=== PATIENT | female | born 1990 | race Caucasian/White ===

== ENCOUNTER → 2016-03-02 | Outpatient (CLI) | payer OTHER ==
[2016-03-02 09:51] LABS: CH 29.4; CHCM 33.2; HCT 30.5 % (34.0-46.0); HDW 2.89; MCH 28.9 pg (25.0-35.0); MCHC 32.6 g/dL (31.0-37.0); MCV 88.7 fL (80.0-100.0); Mean Platelet Volume 8.5; RBC 3.44 m/uL (3.80-5.40); RDW 13.7 % (11.5-15.5)
== END | disposition home or self-care (01) ==
LOC: LABWHC1 08:41
PROVIDERS: ATTEND Obstetrics & Gynecology
DX: Z34.82 Encounter for supervision of other normal pregnancy, second trimester (principal); Z3A.00 Weeks of gestation of pregnancy not specified
CPT/HCPCS: 36415; 82950; 85027

== ENCOUNTER → 2016-03-07 | Outpatient (CLI) | payer OTHER ==
[2016-03-07 12:00] LABS: Glucose 3 Hour, Gest 131 mg/dL
== END | disposition home or self-care (01) ==
LOC: LABWHC1 07:58
PROVIDERS: ATTEND Obstetrics & Gynecology
DX: O99.810 Abnormal glucose complicating pregnancy (principal); Z3A.00 Weeks of gestation of pregnancy not specified
CPT/HCPCS: 36415; 82951; 82952

== ENCOUNTER 2016-06-09 02:55 | Inpatient (IN) | payer OTHER ==
[2016-06-09 03:21] LABS: Glucose,Whole Blood 88 mg/dL (75-99)
[2016-06-09 04:10] VITALS: BMI 41.4
[2016-06-09] MEDS ORDERED: LIDOCAINE 1% (PF) 10 MG/ML (30 ML SDV) SQ PRN (04:17)
[2016-06-09] MEDS ORDERED: OXYTOCIN 10 UNIT/ML 1 ML VIAL IM PRN (04:17)
[2016-06-09] MEDS ORDERED: TERBUTALINE 1 MG/ML VIAL SQ PRN (04:17)
[2016-06-09] MEDS ORDERED: CARBOPROST TROMETHAMINE 250 MCG/ML 1 ML AMP IM PRN (04:17)
[2016-06-09] MEDS ORDERED: METHYLERGONOVINE 0.2 MG/ML 1 ML AMP IM PRN (04:17)
[2016-06-09] MEDS ORDERED: OXYTOCIN 30 UNITS/500 ML NS 30 UNIT in SALINE 1 500ML.BAG IV SCH ×2 (04:30→15:15)
[2016-06-09 04:36] LABS: Basophils % (A) 1 %; CH 28.3; CHCM 33.1; Eosinophils % (A) 0 %; HCT 33.8 % (34.0-46.0); HDW 2.75; HGB 11.1 gm/dL (11.4-16.0); Luc # (Auto) 0.29; Luc % (Auto) 4; Lymphocytes # (A) 2.1 k/uL (1.0-4.8); Lymphocytes % (A) 28 %; MCH 28.3 pg (25.0-35.0); MCHC 32.9 g/dL (31.0-37.0); MCV 85.9 fL (80.0-100.0); Mean Platelet Volume 7.3; Monocytes # (A) 0.4 k/uL (0-1.0); Monocytes % (A) 5 %; Neutrophils # (A) 4.6 k/uL (1.3-7.7); Neutrophils % (A) 62 %; RBC 3.94 m/uL (3.80-5.40); RDW 15.6 % (11.5-15.5); WBC 7.5 k/uL (3.8-10.6); WBC (Perox) 8.17
[2016-06-09] MEDS: LACTATED RINGERS 1,000 ML IV SCH ×3 (05:27→13:25)
--- NOTE | 2016-06-09 05:54 | P.HPOB ---
History of Present Illness H&P Date: 06/09/16 Chief Complaint: Leaking of fluid This patient is a pleasant 26-year-old 2 para 0 female estimated date of confinement 06/16/2016 estimated gestational age 39-0/7 weeks who presented to labor and delivery last evening with complaints of a gush of fluid at approximately 12:30 evening. Patient's is been complicated by gestational diabetes since been managed by maternal medicine. Patient also was noted to have a two-vessel cord but has had good growth. Patient was initially scheduled for Cervidil next week hours found to be grossly ruptured and 2-3 cm dilated. Review of Systems Constitutional: Denies chills, Denies fever Ears, nose, mouth and throat: Denies headache, Denies sore throat Cardiovascular: Denies chest pain, Denies shortness of breath Respiratory: Denies cough Gastrointestinal: Reports heartburn Genitourinary: Reports Menstruation: Reports amenorrhea Musculoskeletal: Denies myalgias Integumentary: Denies pruritus, Denies rash Neurological: Denies numbness, Denies weakness Psychiatric: Denies anxiety, Denies depression Past Medical History Past Medical History: Diabetes Mellitus Additional Past Medical History / Comment(s): Patient has had gestational diabetes. History of Any Multi-Drug Resistant Organisms: None Reported Additional Past Surgical History / Comment(s): oral surgery,,tooth removal, elective . Past Anesthesia/Blood Transfusion Reactions: No Reported Reaction Past Psychological History: No Psychological Hx Reported Smoking Status: Former smoker Past Alcohol Use History: None Reported Past Drug Use History: None Reported Medications and Allergies Home Medications Medication Instructions Recorded Confirmed Type Pnv with Ca,No.72/Iron/FA 1 tab PO DAILY 06/09/16 06/09/16 History [ Plus Tablet] glyBURIDE [Diabeta] 5 mg PO DAILY 06/09/16 06/09/16 History glyBURIDE [Diabeta] 7.5 mg PO DAILY 06/09/16 06/09/16 History Allergies Allergy/AdvReac Type Severity Reaction Status Date / Time No Known Allergies Allergy Verified 06/09/16 03:05 Exam - Vital Signs Vital signs: Vital Signs Temp Pulse Resp BP Pulse Ox 06/09/16 03:11 97.1 F L 77 16 136/74 97 Intake and Output 06/08/16 06/08/16 06/09/16 14:59 22:59 06:59 Other: Weight 114.759 kg Patient Weight 06/09/16 06:59 Weight 114.759 kg - OBG Physical Exam Abdomen: bowel sounds normal, no diffuse tenderness, no bruit present, no guarding noted, no hepatomegaly, no splenomegaly, no mass Vulva: both: normal Vagina: normal moisture, no discharge Cervix: Cervix is 2-3 cm dilated vertex presentation with gross rupture membranes. Uterus: enlarged (Fundal height at her last visit was 40 cm.) Results blood work shows she is A positive, rubella immune, RPR nonreactive, HIV nonreactive, hepatitis B negative, Glucola was abnormal as well as her 3 hour gtt. Patient's ultrasound showed a 2 vessel umbilical cord but otherwise normal anatomy. Patient's had a normal cardiac echo, and a negative group B strep. Most recent ultrasound done by maternal medicine approximately 3 days ago showed the baby to be 8 pounds. Result Diagrams: 06/09/16 04:20 Abnormal Lab Results - Last 24 Hours (Table) 06/09/16 Range/Units 04:20 Hgb 11.1 L (11.4-16.0) gm/dL Hct 33.8 L (34.0-46.0) % RDW 15.6 H (11.5-15.5) % Assessment and Plan (1) Spontaneous rupture of amniotic membranes Narrative/Plan: This is a pleasant 26-year-old 2 para 0 female 39-0/7 weeks gestation with spontaneous rupture membranes. Patient has known 2 vessel umbilical cord and gestational diabetes. Patient is not having any significant contractions and therefore is started on Pitocin at this time for augmentation of labor. Plan is vaginal delivery. Status: Acute (2) Gestational diabetes mellitus (GDM) affecting Status: Acute (3) Single umbilical artery Status: Acute
[2016-06-09] MEDS ORDERED: BUPIVACAINE (PF) 0.25% 30 ML VIAL ONE (08:24)
[2016-06-09] MEDS ORDERED: fentaNYL (PF) 50 MCG/ML 5 ML AMP ONE (08:24)
[2016-06-09] MEDS ORDERED: SODIUM CHLORIDE 0.9% 100 ML BAG ONE (08:24)
[2016-06-09 08:49] LABS: Glucose,Whole Blood 102 mg/dL (75-99)
[2016-06-09 09:52] LABS: Hemoglobin A1C 5.4 % (4.2-6.1)
[2016-06-09] MEDS ORDERED: BUPIVACAINE (PF) 0.25% 25 ML, fentaNYL (PF) 200 MCG in SODIUM CHLORIDE 0.9% 71 ML EPIDURAL ONE (10:20)
[2016-06-09 10:23] LABS: Glucose,Whole Blood 104 mg/dL (75-99)
[2016-06-09 12:16] LABS: Glucose,Whole Blood 91 mg/dL (75-99)
[2016-06-09 14:19] LABS: Glucose,Whole Blood 89 mg/dL (75-99)
[2016-06-09] MEDS ORDERED: HYDROCORTISONE 2.5% RECTAL CREAM 30 GM TUBE RECTAL PRN (15:10)
[2016-06-09] MEDS ORDERED: ZOLPIDEM 5 MG TAB PO PRN (15:10)
[2016-06-09] MEDS ORDERED: Acetaminophen-Codeine 300-30mg TAB PO PRN ×2 (15:10)
[2016-06-09] MEDS ORDERED: diphenhydrAMINE 25 MG CAP PO PRN (15:10)
[2016-06-09] MEDS ORDERED: LANOLIN CREAM 5 GM TUBE TOPICAL PRN (15:10)
[2016-06-09] MEDS ORDERED: BENZOCAINE/MENTHOL SPRAY 1 GM/SPRAY AEROSOL TOPICAL PRN (15:10)
[2016-06-09] MEDS ORDERED: WITCH HAZEL 1 EACH MED..PAD TOPICAL PRN (15:10)
[2016-06-09] MEDS ORDERED: SIMETHICONE 80 MG CHEWABLE PO PRN (15:10)
[2016-06-09] MEDS ORDERED: diphenhydrAMINE 50 MG/ML 1 ML VIAL IVP PRN (15:10)
[2016-06-09] MEDS ORDERED: ACETAMINOPHEN TAB 325 MG TAB PO PRN (15:10)
[2016-06-09] MEDS: IBUPROFEN 600 MG TAB PO PRN ×2 (15:29→22:11)
--- NOTE | 2016-06-09 17:06 | P.PROBDLV ---
Vaginal Delivery Note - . Vaginal Delivery Note: Normal vaginal delivery viable male Apgars 9 and 9 delivery time is 1427 hrs. Please see dictated H&P for intimate details of this patient's admission. Brief summary this pleasant 26-year-old 2 para 0 female 39-0/7 weeks gestation who is admitted to labor and delivery for complaints of leaking of fluid at 12:30 last evening. Patient on admission is 2 cm dilated. She has Pitocin augmentation of labor. She does receive an epidural for pain control. Patient's labor progresses normally she gets to complete. Patient pushes the head to the perineum and the posterior perineum was infiltrated 1% lidocaine. A midline episiotomy is made. We then have controlled delivery of the 's head over the perineum. Mouth and nares are bulb suctioned. There is a double nuchal cord which is loose and reduced. We then have delivery the anterior shoulder with gentle downward traction and posterior shoulder and rest this 's body. This is a vigorous viable male Apgars are 9 and 9 delivery time is 1427 hrs. After delivery of the the umbilical cords doubly clamped and cut appears to be 2 vessels. The is late on the mother's abdomen. Of note we did do delayed cord clamping per patient's request the placenta is spontaneously delivered intact. Inspection of the perineum shows a second-degree midline laceration is repaired with 3-0 Vicryl in the usual fashion. Excellent reapproximation is noted. All counts are correct 3. Estimated blood loss is 150 mL. There are no complications.
[2016-06-09] MEDS: SENNOSIDES-DOCUSATE SODIUM 1 EACH TAB PO SCH (22:03)
[2016-06-10 05:47] LABS: Basophils % (A) 0 %; CH 28.6; CHCM 32.7; Eosinophils % (A) 0 %; HCT 31.7 % (34.0-46.0); HDW 2.62; HGB 10.1 gm/dL (11.4-16.0); Luc # (Auto) 0.37; Luc % (Auto) 4; Lymphocytes # (A) 2.6 k/uL (1.0-4.8); Lymphocytes % (A) 27 %; MCHC 31.8 g/dL (31.0-37.0); MCV 87.8 fL (80.0-100.0); Mean Platelet Volume 7.1; Monocytes # (A) 0.5 k/uL (0-1.0); Monocytes % (A) 5 %; Neutrophils # (A) 6.3 k/uL (1.3-7.7); Neutrophils % (A) 64 %; RBC 3.61 m/uL (3.80-5.40); RDW 15.8 % (11.5-15.5); WBC 9.8 k/uL (3.8-10.6); WBC (Perox) 10.53
[2016-06-10] MEDS: IBUPROFEN 600 MG TAB PO PRN ×2 (05:53→11:38)
[2016-06-10] MEDS: LACTATED RINGERS 1,000 ML IV SCH (05:54)
--- NOTE | 2016-06-10 06:36 | P.PNOBGVD ---
Subjective - Subjective Patient reports: Reports appetite normal, Reports voiding normally, Reports pain well controlled, Reports ambulating normally : doing well Objective - Latest Vital Signs Latest vital signs: Vital Signs Temp Pulse Resp BP Pulse Ox 06/10/16 04:00 98.1 F 80 17 135/82 98 06/10/16 00:00 98.2 F 99 17 130/74 99 06/09/16 20:00 97.6 F 92 17 131/71 97 06/09/16 16:52 81 16 143/68 06/09/16 16:20 98.8 F 81 16 143/68 06/09/16 15:52 78 16 153/69 06/09/16 15:25 76 16 139/72 06/09/16 15:10 90 16 130/64 06/09/16 14:55 85 16 134/64 06/09/16 14:40 97.0 F L 87 16 143/63 Intake and Output 06/09/16 06/09/16 06/10/16 14:59 22:59 06:59 Output Total 300 200 Balance -300 -200 Output: Urine 300 Estimated Blood Loss 200 Other: # Voids 1 1 1 - Exam Lungs: bilateral: normal Chest: Normal S1, Normal S2 Extremities: Present: normal Abdomen: Present: normal appearance, soft Uterus: Present: normal, firm - Labs Labs: Abnormal Lab Results - Last 24 Hours (Table) 06/09/16 06/09/16 06/10/16 Range/Units 08:26 10:11 05:34 RBC 3.61 L (3.80-5.40) m/uL Hgb 10.1 L (11.4-16.0) gm/dL Hct 31.7 L (34.0-46.0) % RDW 15.8 H (11.5-15.5) % POC Glucose (mg/dL) 102 H 104 H (75-99) mg/dL Assessment and Plan (1) Spontaneous rupture of amniotic membranes Narrative/Plan: Post day #1. Patient is resting without complaints and wishes to go home. Vital signs are stable she is afebrile. Uterus is firm nontender she's having normal lochia. My impression is a normal course. Plan is to continue routine care discharge home later today is also baby can go home as well. Current Visit: Yes Status: Acute Code(s): [id number] - SNOMED Code(s): 581001300 (2) Gestational diabetes mellitus (GDM) affecting Current Visit: Yes Status: Acute Code(s): O24.419 - GESTATIONAL DIABETES MELLITUS IN , UNSP CONTROL SNOMED Code(s): 08654899366335 (3) Single umbilical artery Current Visit: Yes Status: Acute Code(s): Q27.0 - CONGENITAL ABSENCE AND HYPOPLASIA OF UMBILICAL ARTERY SNOMED Code(s): 112130669
--- NOTE | 2016-06-10 06:37 | P.DS ---
Providers Date of admission: 06/09/16 03:36 Expected date of discharge: 06/10/16 Attending physician: Edward Garcia Primary care physician: Stated None - Discharge Diagnosis(es) (1) Spontaneous rupture of amniotic membranes Current Visit: Yes Status: Acute (2) Gestational diabetes mellitus (GDM) affecting Current Visit: Yes Status: Acute (3) Single umbilical artery Current Visit: Yes Status: Acute Hospital Course: Please see dictated H&P for intimate details of this patient's admission. Brief summary this is a pleasant 26-year-old 2 para 0 female 39 weeks gestation admitted to labor and delivery spontaneous rupture membranes. Patient 's subsequent goes on to have a vaginal delivery viable male infant. Please see dictated delivery note. On day 1 patient is wishing to go home. She's felt to be stable for discharge home follow up with me in 6 weeks. Procedures: Normal spontaneous vaginal delivery. Patient Condition at Discharge: Good Plan - Discharge Summary New Discharge Prescriptions: Acetaminophen-Codeine 300-30mg [Tylenol w/codeine #3] 1 - 2 each PO Q4HR PRN # 30 tab PRN Reason: Mild Pain exceeding Tylenol Ibuprofen [Motrin] 600 mg PO Q6HR PRN #40 tab PRN Reason: Mild Pain Or Fever >= 100.5 Discharge Medication List Acetaminophen-Codeine 300-30mg [Tylenol w/codeine #3] 1 - 2 each PO Q4HR PRN # 30 tab 06/09/16 [Rx] Ibuprofen [Motrin] 600 mg PO Q6HR PRN #40 tab 06/09/16 [Rx] Pnv with Ca,No.72/Iron/FA [ Plus Tablet] 1 tab PO DAILY 06/09/16 [ History] glyBURIDE [Diabeta] 5 mg PO DAILY 06/09/16 [History] glyBURIDE [Diabeta] 7.5 mg PO DAILY 06/09/16 [History] Follow up Appointment(s)/Referral(s): Edward Garcia MD [STAFF PHYSICIAN] - 07/24/16 8:45 am Patient Instructions/Handouts: Vaginal Delivery (DC) Activity/Diet/Wound Care/Special Instructions: No intercourse or anything per vagina for 6 weeks. Please call if any fever, chills, excessive vaginal bleeding, and/or abdominal pain. Discharge Disposition: HOME SELF-CARE
[2016-06-10] MEDS: SENNOSIDES-DOCUSATE SODIUM 1 EACH TAB PO SCH (08:45)
[2016-06-10 09:04] VITALS: BP 134/84; PULSE 83; RESP 16; TEMP 98.2
== END 2016-06-10 15:10 | disposition home or self-care (01) | DRG 775 ==
LOC: FBPOP 02:55 → 4FBP 03:36
PROVIDERS: ADMIT Obstetrics & Gynecology; ATTEND Obstetrics & Gynecology
PROC: 10E0XZZ Delivery of Products of Conception, External Approach (ICD-10-PCS; principal; 2016-06-09)
PROC: 0KQM0ZZ Repair Perineum Muscle, Open Approach (ICD-10-PCS; 2016-06-09)
PROC: 00HU33Z Insertion of Infusion Device into Spinal Canal, Percutaneous Approach (ICD-10-PCS; 2016-06-09)
DX: O24.429 Gestational diabetes mellitus in childbirth, unspecified control (principal); O69.81X0 Labor and delivery complicated by cord around neck, without compression, not applicable or unspecified; O69.89X0 Labor and delivery complicated by other cord complications, not applicable or unspecified; O70.1 Second degree perineal laceration during delivery; Z37.0 Single live birth; Z3A.39 39 weeks gestation of pregnancy; Z87.891 Personal history of nicotine dependence; Z79.84 Long term (current) use of oral hypoglycemic drugs
CPT/HCPCS: 59025; 83036; 84112; 85025; 88307; 99213

== ENCOUNTER → 2017-11-05 | Outpatient (CLI) | payer BC ==
[2017-11-05 10:29] LABS: HCT 38.7 % (34.0-46.0); HGB 12.9 gm/dL (11.4-16.0); MCH 29.2 pg (25.0-35.0); MCHC 33.4 g/dL (31.0-37.0); MCV 87.4 fL (80.0-100.0); Platelet Count 270 k/uL (150-450); RBC 4.43 m/uL (3.80-5.40); RDW 13.1 % (11.5-15.5); WBC 6.8 k/uL (3.8-10.6)
[2017-11-05 18:07] LABS: HIV 1 AB Non-Reactive (Non-Reactive); HIV AB P24 Non-Reactive (Non-Reactive); HIV P24 AG Non-Reactive (Non-Reactive)
== END ==
LOC: LABWHC1 08:54
PROVIDERS: ATTEND Obstetrics & Gynecology
DX: O26.811 Pregnancy related exhaustion and fatigue, first trimester (principal); Z3A.00 Weeks of gestation of pregnancy not specified
CPT/HCPCS: 36415; 82565; 82950; 85027; 86762; 86780; 86850; 86900; 86901; 87340; 87390

== ENCOUNTER → 2018-02-28 | Outpatient (CLI) | payer BC ==
[2018-02-28 10:37] LABS: HCT 31.4 % (34.0-46.0); HGB 10.7 gm/dL (11.4-16.0); MCH 29.9 pg (25.0-35.0); MCHC 34.2 g/dL (31.0-37.0); MCV 87.5 fL (80.0-100.0); Mean Platelet Volume 7.3; Platelet Count 239 k/uL (150-450); RBC 3.59 m/uL (3.80-5.40); RDW 14.5 % (11.5-15.5); WBC 7.3 k/uL (3.8-10.6)
== END | disposition home or self-care (01) ==
LOC: LABWHC1 08:59
PROVIDERS: ATTEND Obstetrics & Gynecology
DX: Z34.82 Encounter for supervision of other normal pregnancy, second trimester (principal); Z3A.00 Weeks of gestation of pregnancy not specified
CPT/HCPCS: 36415; 82950; 85027

== ENCOUNTER 2018-05-31 05:34 | Inpatient (IN) | payer BC ==
--- NOTE | 2018-05-30 16:51 | P.HPOB ---
History of Present Illness H&P Date: 05/30/18 Chief Complaint: Gestational diabetes, induction of labor. This patient is a pleasant 28-year-old 3 para 1 female estimated date of confinement 06/07/2018 estimated gestational age 39-0/7 weeks gestation admitted to labor and delivery for induction of labor secondary to insulin-dependent gestational diabetes at term with a favorable cervix. Patient has been followed by maternal- medicine for her gestational diabetes and was initially given metformin but then was changed over to insulin for better glucose regulation. care has otherwise been uncomplicated. She now presents for delivery. Review of Systems Genitourinary: Reports Menstruation: Reports amenorrhea Past Medical History Past Medical History: Asthma, Diabetes Mellitus Additional Past Medical History / Comment(s): Patient has had gestational diabetes. ADHD and asthma History of Any Multi-Drug Resistant Organisms: None Reported Past Surgical History: No Surgical Hx Reported Additional Past Surgical History / Comment(s): oral surgery,,tooth removal, elective . Past Anesthesia/Blood Transfusion Reactions: No Reported Reaction Past Psychological History: No Psychological Hx Reported Smoking Status: Former smoker Past Alcohol Use History: None Reported Past Drug Use History: None Reported Medications and Allergies Home Medications Medication Instructions Recorded Confirmed Type Pnv,Calcium 72/Iron/Folic Acid 1 tab PO DAILY 06/09/16 06/09/16 History [ Plus Tablet] Allergies Allergy/AdvReac Type Severity Reaction Status Date / Time No Known Allergies Allergy Verified 06/09/16 03:05 Exam - OBG Physical Exam Abdomen: bowel sounds normal, no diffuse tenderness, no bruit present, no guarding noted, no hepatomegaly, no splenomegaly, no mass Vulva: both: normal Vagina: normal moisture, no discharge Cervix: Cervix the office is 2-3 cm and soft. Cervix: no lesion, no discharge Uterus: normal size (Fundal height was 40 cm), normal contour Results blood work shows she is A positive, rubella immune, RPR nonreactive, hepatitis B negative, HIV is nonreactive, group B strep was negative, ultrasounds have shown normal growth, Glucola was 175. Assessment and Plan Assessment: This is a pleasant 28-year-old 3 para 1 female 39-0/7 weeks gestation who is admitted to labor and delivery for induction of labor secondary to insulin-dependent gestational diabetes. Plan is induction of labor and anticipate vaginal delivery. (1) Gestational diabetes mellitus (GDM) affecting Status: Acute Code(s): O24.419 - GESTATIONAL DIABETES MELLITUS IN , UNSP CONTROL SNOMED Code(s): 92475683295546
[2018-05-31] MEDS ORDERED: METHYLERGONOVINE 0.2 MG/ML 1 ML AMP IM PRN (05:48)
[2018-05-31] MEDS ORDERED: LACTATED RINGERS 1,000 ML IV SCH (05:48)
[2018-05-31] MEDS ORDERED: CARBOPROST TROMETHAMINE 250 MCG/ML 1 ML AMP IM PRN (05:48)
[2018-05-31] MEDS ORDERED: OXYTOCIN 10 UNIT/ML 1 ML VIAL IM PRN (05:48)
[2018-05-31] MEDS ORDERED: OXYTOCIN 30 UNITS/500 ML NS 30 UNIT in SALINE 1 500ML.BAG IV SCH (05:48)
[2018-05-31] MEDS ORDERED: LIDOCAINE 0.5% (PF) 5 MG/ML (50 ML SDV) SQ PRN (05:48)
[2018-05-31] MEDS ORDERED: TERBUTALINE 1 MG/ML VIAL SQ PRN (05:48)
[2018-05-31 05:54] LABS: Glucose,Whole Blood 93 mg/dL (75-99)
[2018-05-31 06:16] VITALS: RESP 16; BMI 42.0
[2018-05-31 06:32] LABS: Basophils % (A) 1 %; Eosinophils # (A) 0.1 k/uL (0-0.7); Eosinophils % (A) 1 %; HGB 11.9 gm/dL (11.4-16.0); Lymphocytes # (A) 2.6 k/uL (1.0-4.8); Lymphocytes % (A) 41 %; MCH 26.4 pg (25.0-35.0); MCHC 32.3 g/dL (31.0-37.0); MCV 81.9 fL (80.0-100.0); Mean Platelet Volume 8.4; Monocytes # (A) 0.5 k/uL (0-1.0); Monocytes % (A) 7 %; Neutrophils % (A) 47 %; Platelet Count 244 k/uL (150-450); RBC 4.51 m/uL (3.80-5.40); RDW 15.9 % (11.5-15.5); WBC 6.2 k/uL (3.8-10.6)
[2018-05-31 07:52] LABS: Glucose,Whole Blood 100 mg/dL (75-99)
[2018-05-31] MEDS ORDERED: SODIUM CHLORIDE 0.9% 100 ML BAG ONE (08:25)
[2018-05-31] MEDS ORDERED: fentaNYL (PF) 50 MCG/ML 5 ML AMP ONE (08:25)
[2018-05-31] MEDS ORDERED: ROPIVACAINE 5MG/ML 20ML VIAL ONE (08:25)
[2018-05-31 08:30] LABS: Glucose,Whole Blood 98 mg/dL (75-99)
[2018-05-31 09:14] LABS: Glucose,Whole Blood 94 mg/dL (75-99)
[2018-05-31] MEDS ORDERED: BISACODYL 10 MG SUPP RECTAL PRN (10:44)
[2018-05-31] MEDS ORDERED: SIMETHICONE 80 MG CHEWABLE PO PRN (10:44)
[2018-05-31] MEDS ORDERED: ACETAMINOPHEN TAB 325 MG TAB PO PRN (10:44)
[2018-05-31] MEDS ORDERED: HYDROCORTISONE 2.5% RECTAL CREAM 30 GM TUBE RECTAL PRN (10:44)
[2018-05-31] MEDS ORDERED: BENZOCAINE/MENTHOL SPRAY 1 GM/SPRAY AEROSOL TOPICAL PRN (10:44)
[2018-05-31] MEDS ORDERED: WITCH HAZEL 1 EACH MED..PAD TOPICAL PRN (10:44)
[2018-05-31] MEDS ORDERED: diphenhydrAMINE 25 MG CAP PO PRN (10:44)
[2018-05-31] MEDS ORDERED: LANOLIN CREAM 5 GM TUBE TOPICAL PRN (10:44)
[2018-05-31] MEDS ORDERED: ZOLPIDEM 5 MG TAB PO PRN (10:44)
[2018-05-31] MEDS ORDERED: diphenhydrAMINE 50 MG/ML 1 ML VIAL IVP PRN (10:44)
[2018-05-31] MEDS ORDERED: OXYTOCIN 20 UNITS/1000 ML NS 1,000 ML IV SCH (10:44)
[2018-05-31 15:49] LABS: Hemoglobin A1C 5.6 % (4.0-6.0)
[2018-05-31] MEDS: IBUPROFEN 600 MG TAB PO PRN (16:28)
--- NOTE | 2018-05-31 17:54 | P.PROBDLV ---
Vaginal Delivery Note - . Vaginal Delivery Note: Normal vaginal delivery viable male Apgars 9 and 10 delivery time was 0957 hours. Please see dictated H&P for intimate details of this patient's admission. Brief summary this pleasant 28-year-old 3 para 1 female 39 weeks gestation who is admitted to labor and delivery for induction of labor secondary to insulin- dependent gestational diabetes at term with favorable cervix. Patient is admitted she is proximally 2 cm dilated. Artificial rupture membranes for clear fluid. Patient's labor is augmented with Pitocin per protocol. She does progress and gets an epidural for pain control. Patient thereafter does go quickly to complete pushes the head to the perineum. Posterior perineum is supported we have controlled delivery of infant's head over the perineum. Mouth and nares are bulb suctioned. There is a nuchal cord 1 which is loose and reduced. With gentle downward traction we then have delivery anterior and posterior shoulder and rest this infant's body. This is a vigorous viable male infant Apgars are 9 and 10 delivery time 0957 hours. Infant is laid on the mother's abdomen. After the cord is done pulsating is then doubly clamped and cut. Placenta spontaneously delivered intact. Appears to be trivascular. Inspection of perineum shows a first-degree laceration was repaired with 3-0 Vicryl usual fashion good reapproximation is noted. Infant and mother stable delivery room. All counts are correct 3. There are no complications.
[2018-05-31] MEDS: SENNOSIDES-DOCUSATE SODIUM 1 EACH TAB PO SCH ×2 (19:44→23:00)
[2018-06-01] MEDS: IBUPROFEN 600 MG TAB PO PRN ×2 (00:04→06:29)
--- NOTE | 2018-06-01 07:27 | P.PNOBGVD ---
Subjective - Subjective Patient reports: Reports appetite normal, Reports voiding normally, Reports pain well controlled, Reports ambulating normally : doing well Objective - Latest Vital Signs Latest vital signs: Vital Signs Temp Pulse Resp BP 06/01/18 00:00 98.5 F 68 16 137/72 05/31/18 19:55 98.3 F 77 16 110/57 05/31/18 16:00 98.7 F 57 L 16 128/92 05/31/18 12:28 99 F 64 16 102/71 05/31/18 11:50 57 L 16 119/63 05/31/18 11:20 61 16 121/67 05/31/18 11:05 57 L 16 120/67 05/31/18 10:50 84 16 119/65 05/31/18 10:35 89 16 121/63 05/31/18 10:20 96.8 F L 88 16 122/64 Intake and Output 05/31/18 06/01/18 06/01/18 22:59 06:59 14:59 Other: # Voids 1 1 - Exam Lungs: bilateral: normal Chest: Normal S1, Normal S2 Extremities: Present: normal Abdomen: Present: normal appearance, soft Uterus: Present: normal, firm - Labs Labs: Abnormal Lab Results - Last 24 Hours (Table) 05/31/18 Range/Units 07:13 POC Glucose (mg/dL) 100 H (75-99) mg/dL Assessment and Plan Assessment: day #1. Patient is resting without complaints and wishes to go home. Vital signs are stable and she is afebrile. Uterus is firm nontender she's having normal lochia. My impression is a normal course. Plan is to continue routine care and discharge home later today (1) Gestational diabetes mellitus (GDM) affecting Current Visit: No Status: Acute Code(s): O24.419 - GESTATIONAL DIABETES MELLITUS IN , UNSP CONTROL SNOMED Code(s): 92472610190720
--- NOTE | 2018-06-01 07:31 | P.DS ---
Providers Date of admission: 05/31/18 05:34 Expected date of discharge: 06/01/18 Attending physician: Edward Garcia Primary care physician: Ayleen Ya - Discharge Diagnosis(es) (1) Gestational diabetes mellitus (GDM) affecting Current Visit: No Status: Acute Hospital Course: Please see dictated H&P for intimate details of this patient's admission. Brief summary this is a pleasant 28-year-old 3 para 1 female 39 weeks gestation admitted to labor and delivery for induction of labor secondary to insulin-dependent gestational diabetes. Patient is admitted and induction of labor induction of labor quickly goes on have a vaginal delivery viable male . Please see dictated delivery note. day 1 patient's to well was felt be stable for discharge home follow up with me in 6 weeks. Procedures: Induction of labor and normal vaginal delivery Patient Condition at Discharge: Good Plan - Discharge Summary New Discharge Prescriptions: New Ibuprofen [Motrin] 600 mg PO Q6HR PRN #40 tab PRN Reason: Mild Pain Or Fever >= 100.5 No Action Pnv,Calcium 72/Iron/Folic Acid [ Plus Tablet] 1 tab PO DAILY Insulin NPH Human Isophane [NovoLIN N] 28 units SQ HS Discharge Medication List Pnv,Calcium 72/Iron/Folic Acid [ Plus Tablet] 1 tab PO DAILY 06/09/16 [History] Insulin NPH Human Isophane [NovoLIN N] 28 units SQ HS 05/31/18 [History] Ibuprofen [Motrin] 600 mg PO Q6HR PRN #40 tab 06/01/18 [Rx] Follow up Appointment(s)/Referral(s): Edward Garcia MD [STAFF PHYSICIAN] - 07/12/18 10:45 am Patient Instructions/Handouts: Vaginal Delivery (DC) Activity/Diet/Wound Care/Special Instructions: No intercourse or anything per vagina for 6 weeks. Please call if any fever, chills, excessive vaginal bleeding, and/or abdominal pain. Discharge Disposition: HOME SELF-CARE
[2018-06-01 08:46] VITALS: BP 140/86; PULSE 69; TEMP 98.3
[2018-06-01] MEDS: SENNOSIDES-DOCUSATE SODIUM 1 EACH TAB PO SCH (08:46)
== END 2018-06-01 13:55 | disposition home or self-care (01) | DRG 807 ==
LOC: 4FBP 05:34
PROVIDERS: ADMIT Obstetrics & Gynecology; ATTEND Obstetrics & Gynecology
PROC: 10E0XZZ Delivery of Products of Conception, External Approach (ICD-10-PCS; principal; 2018-05-31)
PROC: 0HQ9XZZ Repair Perineum Skin, External Approach (ICD-10-PCS; 2018-05-31)
PROC: 3E033VJ Introduction of Other Hormone into Peripheral Vein, Percutaneous Approach (ICD-10-PCS; 2018-05-31)
PROC: 10907ZC Drainage of Amniotic Fluid, Therapeutic from Products of Conception, Via Natural or Artificial Opening (ICD-10-PCS; 2018-05-31)
PROC: 00HU33Z Insertion of Infusion Device into Spinal Canal, Percutaneous Approach (ICD-10-PCS; 2018-05-31)
PROC: 3E0R3BZ Introduction of Anesthetic Agent into Spinal Canal, Percutaneous Approach (ICD-10-PCS; 2018-05-31)
DX: O24.424 Gestational diabetes mellitus in childbirth, insulin controlled (principal); Z37.0 Single live birth; O99.344 Other mental disorders complicating childbirth; F90.9 Attention-deficit hyperactivity disorder, unspecified type; O69.81X0 Labor and delivery complicated by cord around neck, without compression, not applicable or unspecified; O70.0 First degree perineal laceration during delivery; O99.52 Diseases of the respiratory system complicating childbirth; J45.909 Unspecified asthma, uncomplicated; Z3A.39 39 weeks gestation of pregnancy; Z79.4 Long term (current) use of insulin; Z79.899 Other long term (current) drug therapy; Z87.891 Personal history of nicotine dependence
CPT/HCPCS: 83036; 85025; 86850; 86900; 86901

== ENCOUNTER → 2019-08-14 | Outpatient (CLI) | payer BC ==
[2019-08-14 07:45] LABS: HCT 39.8 % (34.0-46.0); HGB 12.7 gm/dL (11.4-16.0); MCH 30.9 pg (25.0-35.0); MCV 96.7 fL (80.0-100.0); Mean Platelet Volume 7.4; Platelet Count 219 k/uL (150-450); RBC 4.12 m/uL (3.80-5.40); RDW 12.6 % (11.5-15.5); WBC 5.9 k/uL (3.8-10.6)
[2019-08-14 11:20] LABS: ALT 29 U/L (8-44); AST 31 U/L (13-35); African American GFR (CKD) 114.7 (60.0-200.0); Alkaline Phosphatase 46 U/L (41-126); Calcium 9.7 mg/dL (8.7-10.3); Carbon Dioxide 27.7 mmol/L (21.6-31.8); Chloride 105 mmol/L (96-109); Globulin 2.3 g/dL (1.6-3.3); Glucose 91 mg/dL (70-110); Non-African American GFR(CKD) 98.9 (60.0-200.0); Potassium 4.2 mmol/L (3.5-5.5); Sodium 142 mmol/L (135-145); Total Bilirubin 2.1 mg/dL (0.3-1.2); Total Protein 6.9 g/dL (6.2-8.2)
[2019-08-14 12:06] LABS: Hemoglobin A1C 5.1 % (4.0-6.0)
[2019-08-14 13:23] LABS: Follicle Stimulating Hormone 6.1 mIU/mL; Luteinizing Hormone 3.7 mIU/mL
[2019-08-14 13:37] LABS: Estradiol <11.8 pg/mL
== END | disposition home or self-care (01) ==
LOC: LABWHC1 07:07
PROVIDERS: ATTEND Obstetrics & Gynecology
DX: N91.2 Amenorrhea, unspecified (principal)
CPT/HCPCS: 36415; 80053; 82670; 83001; 83002; 83036; 84439; 84443; 84479; 85027

== ENCOUNTER → 2019-09-02 | Outpatient (CLI) | payer BC | END | disposition home or self-care (01) | LOC: LABWHC1 08:11 | PROVIDERS: ATTEND Obstetrics & Gynecology | DX: N91.2 Amenorrhea, unspecified (principal) | CPT/HCPCS: 36415; 84146 ==